=== PATIENT | male | born 1960 | race Caucasian/White ===

== ENCOUNTER 2017-03-07 12:26 | Emergency (ER) | payer MEDICAID ==
[~2017-03-07] VITALS: Ht 167.6 cm; Wt 77.1 kg
--- NOTE | 2017-03-07 12:35 | NUR ---
Patient to ER bed 8 to gown for evaluation. Side rails up. Report given to AMADEO Farah.
--- NOTE | 2017-03-07 12:36 | NUR ---
Dr. Fuentes at bedside for evaluation
[2017-03-07 12:37] VITALS: BP_SYST 145
--- NOTE | 2017-03-07 12:37 | NUR ---
Pt brought in by family in stable condition. Pt was taken to bed 8 via wheelchair. Pt c/o right ankle pain 7/ s/p 6 foot fall from a ladder while painting his house. Pt denies hitting his head. -KO. Pt present w/ obvious deformity to right ankle. Pt states that he still has sensation to right toes, cap refill < 2seconds, but pedal pulse is absent to right foot. +swelling +bruising to right foot and ankle. -sob -chest pain. No acute distress noted at this time, will continue to monitor.
[2017-03-07] MEDS ORDERED: HYDROcodone/ACETAMIN 5-325 MG TAB (NORCO/ VICODIN) PO ONE (12:45)
--- NOTE | 2017-03-07 12:46 | NUR ---
Medicated with [place] for 8/[address] pain per Dr[address] Fuentes's order, teach back fall precautions provided, bed low brake on side rails x 2 family and patient updated on plan of care.
--- NOTE | 2017-03-07 12:49 | NUR ---
Verbilized understanding of NPO status last oral intake was 0800
[2017-03-07] MEDS ORDERED: ETOMIDATE 20 MG/ 10 ML VIAL (AMIDATE) IVP ONE (13:30)
--- NOTE | 2017-03-07 13:41 | NUR ---
"TIME OUT" performed prior to moderate sedation. MD Fuentes, MD Pradhan, Kp RN, and Sofi RN present at bedside.
--- NOTE | 2017-03-07 13:42 | NUR ---
Scanner not working on this computer, unable to scan Etomidate.
--- NOTE | 2017-03-07 13:52 | NUR ---
Pt woke up from sedation. Pt able to move toes, cap refill less 2 seconds and pedal pulse is present. Pt denies any pain at this time. Educated patient on pain management and to notfiy me when pain arises. Pt placed on continuous cardiac monitoring, pulse Ox, and BP cuff. Pt tolerated procedure well.
--- NOTE | 2017-03-07 14:02 | NUR ---
Dr. Fuentes at bedside updating patient and patient's family on x-ray results and plan of care.
--- NOTE | 2017-03-07 14:41 | NUR ---
Moderate sedation 1 to 1 observation is completed. Pt is AOx4 and talking to me coherently. Pt denies any pain at this time. Will continue to monitor.
--- NOTE | 2017-03-07 15:09 | NUR ---
Patient resting quietly in nad, vital signs stable, respirations even and unlabored, skin warm and dry to touch. Patient remains on senior policy analyst which shows sinus rhythm without ectopy. Patient also remains on BP monitor and pulse oximeter. Will continue to observe and assess.
[2017-03-07 16:37] VITALS: BP_SYST 107
--- NOTE | 2017-03-07 16:37 | NUR ---
Patient given written and verbal discharge instructions and verbalizes understanding. ER MD DALAL/ JULIUS discussed with patient the results and treatment provided. Patient in stable condition. ID arm band removed. IV catheter removed intact and dressing applied, no active bleeding. Rx of NORCO 10-325 AND MOTRIN 600 given. Patient educated on pain management and to follow up with PMD. Pain Scale 2/10. Opportunity for questions provided and answered.
== END 2017-03-07 16:37 | disposition home or self-care (01) ==
LOC: SED 12:26
DX: S82.851A Displaced trimalleolar fracture of right lower leg, initial encounter for closed fracture (principal); E11.9 Type 2 diabetes mellitus without complications; W11.XXXA Fall on and from ladder, initial encounter; Y93.89 Activity, other specified; Y92.89 Other specified places as the place of occurrence of the external cause; Y99.8 Other external cause status
CPT/HCPCS: 27818; 73560; 73610; 99152; 99285; J3490